=== PATIENT | male | born 1990 | race Caucasian/White ===

== ENCOUNTER 2022-04-28 09:47 | Emergency (ER) | payer OTHER, SELFPAY ==
[2022-04-28 10:00] VITALS: BP 145/77; PULSE 69; RESP 16; TEMP 37.4; O2SAT 100
[2022-04-28 10:02] VITALS: BP 145/77; PULSE 69; RESP 16; TEMP 37.4; O2SAT 100
--- NOTE | 2022-04-28 10:10 | ED.URI ---
HPI - URI/Sore Throat General Chief Complaint: Upper Respiratory Infection Stated Complaint: Sore Throat History of Present Illness HPI Narrative: 31-year-old male presented for complaint of sore throat with post nasal drainage, onset yesterday. 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 Tested negative for covid at home yesterday and today. Endorses testing positive for strep 2 times this year already and had covid in Sep. Denies cough, shortness of breath, fever, vomiting. Not taking any medication for symptoms. Related Data Home Medications Medication Instructions Recorded Confirmed No Home Medications 04/28/22 04/28/22 Allergies Allergy/AdvReac Type Severity Reaction Status Date / Time No Known Allergies Allergy Verified 04/28/22 10:01 Review of Systems Review of Systems: CONSTITUTIONAL: Denies body aches, fever, chills, or sweats. EYES: Denies visual changes, redness, or discharge. ENT: Denies rhinorrhea, congestion, or otalgia. CARDIOVASCULAR: Denies chest pain, palpitations, or edema. RESPIRATORY: Denies dyspnea. GASTROINTESTINAL: Denies abdominal pain, nausea, vomiting, or diarrhea. SKIN: Denies rash, itching, or wounds. MUSCULOSKELETAL: Denies back pain, joint pain, or myalgia. NEUROLOGIC: Denies headache Exam Narrative: GENERAL: Ill-appearing, no acute distress. EYES: conjunctivae clear ENT: Mucous membranes moist. TM pearly jacobson with normal light reflex bilaterally; no tragal tenderness. Oropharynx erythematous without lesions. Tonsils enlarged and without exudate. No drooling, no hoarseness, no trismus, uvula midline. No tripod positioning, hot potato voice, or soft palate swelling. NECK: Supple. No lymphadenopathy CHEST: Clear to auscultation, breath sounds equal. HEART: Regular rate and rhythm. No murmur heard. SKIN: Warm, dry, no rash. NEURO: Alert and oriented x3. Course Course Emergency Course: Patient is aware of diagnosis, understands and agrees to treatment plan. Anticipatory guidance given. Patient agrees to follow-up as directed and is aware of reasons to seek care at the emergency department. Portions of this record may have been created with voice recognition software Level of Care: Express Care Visit Vital Signs Vital signs: Vital Signs Temperature 99.4 F 04/28/22 10:00 Pulse Rate 69 04/28/22 10:00 Respiratory Rate 16 04/28/22 10:00 Blood Pressure 145/77 H 04/28/22 10:00 Pulse Oximetry 100 04/28/22 10:00 Oxygen Delivery Room Air 04/28/22 10:00 Temperature 99.4 F 04/28/22 10:02 Pulse Rate 69 04/28/22 10:02 Respiratory Rate 16 04/28/22 10:02 Blood Pressure 145/77 H 04/28/22 10:02 Pulse Oximetry 100 04/28/22 10:02 Oxygen Delivery Room Air 04/28/22 10:02 MDM - URI/Sore Throat MDM Narrative Medical decision making narrative: Neg covid strep result reviewed with pt. Advise supportive treatments. Patient is appropriate for outpatient treatment and follow-up. Differential Diagnosis Differential diagnosis: Likely upper respiratory infection, viral infection and pharyngitis Lab Data Labs: Strep Screen Presumptive Negative *(Reference Range: Negative)* Discharge Plan Discharge Clinical Impression: Pharyngitis Qualifiers: Pharyngitis/tonsillitis etiology: unspecified etiology Qualified Code(s): J02.9 - Acute pharyngitis, unspecified Patient Disposition: Home, Self-Care Condition: Stable Instructions: Antibiotic Form, Pharyngitis (ED) Additional Instructions: Your Rapid COVID test was negative today. If you are symptomatic with reason to believe you have COVID-19, there is a high possibility your rapid test may not have detected the virus. You should follow appropriate guidelines regarding quarantine, hand washing, mask wearing, and social distancing Rapid strep swab were negative today You will be no
== END 2022-04-28 10:40 | disposition home or self-care (01) ==
PROVIDERS: Emergency Provider Nurse Practitioner Family
DX: J02.9 Acute pharyngitis, unspecified (principal)
CPT/HCPCS: 87081; 87880; 99203; G0463

== ENCOUNTER 2024-04-08 08:32 | Emergency (ER) | payer OTHER, SELFPAY ==
[2024-04-08 08:38] VITALS: BP 143/87; PULSE 86; RESP 18; TEMP 36.1; O2SAT 100
--- NOTE | 2024-04-08 08:45 | ED.GENADULT ---
HPI - General Adult General Chief complaint: Urogenital-Male <Mayda Story NP - Last Filed: 04/08/24 20:27> Stated complaint: fever/std outbreak <Mayda Story NP - Last Filed: 04/08/24 20:27> Source: patient, RN notes reviewed and old records reviewed <Mayda Story NP - Last Filed: 04/08/24 20:27> Mode of arrival: ambulatory <Mayda Story NP - Last Filed: 04/08/24 20:27> Limitations: no limitations <SUJEY Boyce Last Filed: 04/08/24 20:27> History of Present Illness HPI narrative: 33 year old male who presents to [facility] care with complaints of herpes genitalia outbreak the past 2 weeks with 4 pustular lesions noted in genital area. Patient reports that 3 days ago he ate some fish that one of his coworkers brought into work and he has also had some diarrhea from that, and has also had fever, He reports that he had fever of 101F 2 days ago and yesterday fever of 100F. Patient reports no fever or diarrhea today, denies any abdominal pain.Patient reports that he has taken some Tylenol and Ibuprofen for his symptoms. <Mayda Story NP - Last Filed: 04/08/24 20:27> MD complaint: herpes outbreak <Mayda Story NP - Last Filed: 04/08/24 20:27> Onset (ago): week(s) (2) <Mayda Story NP - Last Filed: 04/08/24 20:27> Location: genitals <Mayda Story NP - Last Filed: 04/08/24 20:27> Severity: moderate <Mayda Story NP - Last Filed: 04/08/24 20:27> Treatments prior to arrival: NSAID and other (Tylenol) <Mayda Story NP - Last Filed: 04/08/24 20:27> Related Data Allergies/adverse reactions: Allergies Allergy/AdvReac Type Severity Reaction Status Date / Time No Known Allergies Allergy Verified 04/08/24 08:48 <Mayda Story NP - Last Filed: 04/08/24 20:27> Review of Systems Review of Systems: CONSTITUTIONAL: Reports intermittent fevers for the past 2 days none today, chills, or sweats. EYES: Denies visual changes, redness, or discharge. ENT: Denies rhinorrhea, congestion, sore throat, or otalgia. CARDIOVASCULAR: Denies chest pain, palpitations, or edema. RESPIRATORY: Denies cough or dyspnea. GASTROINTESTINAL: Denies abdominal pain,no nausea, vomiting, positive for intermittent diarrhea previous 2 days, none today. GENITOURINARY: Denies dysuria or hematuria. pustular lesion genitalia SKIN: Denies rash or itching. MUSCULOSKELETAL: Denies back pain, joint pain, or myalgia. NEUROLOGIC: Denies headache, numbness, or weakness. PSYCHIATRIC: Denies anxiety or depression. <Mayda Story NP - Last Filed: 04/08/24 20:27> All systems reviewed & are unremarkable except as noted in HPI and below <Mayda Story NP - Last Filed: 04/08/24 20:27> PMFSH Past Medical History Medical History: Medical History (Updated 04/08/24 @ 20:27 by Mayda Story NP) Genital herpes in men <Mayda Story NP - Last Filed: 04/08/24 20:27> Social History Social History: Social History (Updated 04/08/24 @ 20:21 by Mayda Story NP) Smoking status: Never smoker Alcohol intake: current Alcohol use details: social Substance use type: does not use Gender identity (if verbalized by the patient): Male <Mayda Story NP - Last Filed: 04/08/24 20:27> Comments At time of signature, agree with nursing past medical, surgical, social and family history. There is no relevant family history pertinent to the presenting complaint <Mayda Story NP - Last Filed: 04/08/24 20:27> Exam Narrative: GENERAL: Well-appearing, well-nourished, and in no acute distress. HEAD: Normocephalic, atraumatic. EYES: PERRLA and EOMI. ENT: Nares clear, no rhinorrhea or epistaxis. Mucous membranes moist.TM's normal throat pink with no swelling NECK: Supple.no lymphadenopathy CHEST: Clear to auscultation. No respiratory distress.SAO2 100% on room air SAO2 100% on room air HEART: Regular
== END 2024-04-08 09:05 | disposition home or self-care (01) ==
PROVIDERS: Emergency Provider Registered Nurse
DX: A60.00 Herpesviral infection of urogenital system, unspecified (principal); R19.7 Diarrhea, unspecified
CPT/HCPCS: 99213; G0463

== ENCOUNTER 2024-06-16 13:00 | Emergency (ER) | payer OTHER, SELFPAY ==
[2024-06-16 13:08] VITALS: BP 128/89; PULSE 91; RESP 20; TEMP 37.5; O2SAT 100
--- NOTE | 2024-06-16 13:15 | ED.SKABFB ---
HPI - Skin/Abscess/Foreign Bdy General Chief complaint: Skin/Abscess/Foreign Body Stated complaint: RT Hand Pain Time Seen by Provider: 06/16/24 13:23 Source: patient, RN notes reviewed and old records reviewed Mode of arrival: ambulatory Limitations: no limitations History of Present Illness HPI narrative: 33 year old male presents to express care with complaints of small open area to right thumb noted as a small gash yesterday,unsure if bite of some kind or just a wound. Patient reports that thumb has increased redness swelling and soreness today with some clear drainage from site.Patient reports no known fevers is concerned for infection to site. MD complaint: other (wound tight thumb unsure if bite) Onset (ago): day(s) (day 2 of symptoms) Severity scale (1-10): 2 Quality: other (soreness) Treatments prior to arrival: none Related Data Home Medications Medication Instructions Recorded Confirmed bictegravir 30 mg-emtricitabine 1 tablet PO DAILY 06/16/24 06/16/24 120 mg-tenofovir alafenam 15 mg tablet (Biktarvy) Allergies Allergy/AdvReac Type Severity Reaction Status Date / Time No Known Allergies Allergy Verified 06/16/24 13:27 Review of Systems Review of Systems: CONSTITUTIONAL: Denies fever, chills, or sweats. CARDIOVASCULAR: Denies chest pain, palpitations, or edema. RESPIRATORY: Denies cough or dyspnea. SKIN: Reports small black centered wound with surrounding redness swelling and tenderness to right thumb MUSCULOSKELETAL: Denies joint pain or myalgia. NEUROLOGIC: Denies headache, numbness, or weakness. All systems reviewed & are unremarkable except as noted in HPI and below PMFSH Past Medical History Medical History (Updated 06/18/24 @ 11:11 by Mayda Story NP) Genital herpes in men HIV (human immunodeficiency virus infection) Social History Social History (Updated 04/08/24 @ 20:21 by Mayda Story NP) Smoking status: Never smoker Alcohol intake: current Alcohol use details: social Substance use type: does not use Gender identity (if verbalized by the patient): Male Comments At time of signature, agree with nursing past medical, surgical, social and family history. There is no relevant family history pertinent to the presenting complaint Exam Narrative: GENERAL: Well-appearing, well-nourished, and in no acute distress. HEAD: Normocephalic, atraumatic. EYES: PERRLA, conjunctivae clear, and EOMI. ENT: Mucous membranes moist. Oropharynx without edema, erythema or lesions. NECK: Supple. No lymphadenopathy CHEST: Clear to auscultation. No respiratory distress.SAO2 100% on room air HEART: Regular rate and rhythm. SKIN: Warm, dry.?0.2cm scabbed appearing wound with some surrounding redness and swelling of right thumb, no drainage noted is warm and tender to palpation NEURO:? Alert and oriented x3. PSYCH: Normal mood and affect Course Course Emergency Course: Patient is aware of diagnosis, understands and agrees to treatment plan.? Anticipatory guidance given.? Patient agrees to follow-up as directed and is aware of reasons to seek care at the emergency department. Portions of this record may have been created with voice recognition software Level of Care: Express Care Visit Vital Signs Vital signs: Vital Signs Temperature 37.5 C 06/16/24 13:08 Pulse Rate 91 06/16/24 13:08 Respiratory Rate 20 06/16/24 13:08 Blood Pressure 128/89 06/16/24 13:08 Pulse Oximetry 100 06/16/24 13:08 Oxygen Delivery Room Air 06/16/24 13:08 Temperature 37.5 C 06/16/24 13:08 Pulse Rate 91 06/16/24 13:08 Respiratory Rate 20 06/16/24 13:08 Blood Pressure 128/89 06/16/24 13:08 Pulse Oximetry 100 06/16/24 13:08 Oxygen Delivery Room Air 06/16/24 13:08 Reviewed MDM - Skin/Abscess/Foreign Bdy MDM Narrative Medical decision making narrative: Does not appear at this time to be erythema multiforme, bullous, SJS, TEN;
== END 2024-06-16 13:35 | disposition home or self-care (01) ==
PROVIDERS: Emergency Provider Registered Nurse; PCP Internal Medicine Infectious Disease
DX: L02.511 Cutaneous abscess of right hand (principal); Z21 Asymptomatic human immunodeficiency virus [HIV] infection status
CPT/HCPCS: 99213; G0463